=== PATIENT | male | born 1995 | race African-American/Black ===

== ENCOUNTER 2018-06-02 09:54 | Emergency (ER) | payer OTHER ==
--- NOTE | 2018-06-02 10:37 | RAD ---
LEFT WRIST 3 VIEWS: Date: 06/02/18 HISTORY: Left wrist pain. FINDINGS: Scaphoid waist and ulnar styloid are intact. No acute fracture, dislocation, or aggressive osseous er osions. IMPRESSION: No acute osseous abnormalities are demonstrated. POS: [facility]
[2018-06-02] MEDS ORDERED: Ibuprofen 800 MG TAB ONE (10:42)
== END 2018-06-02 10:43 | disposition home or self-care (01) ==
LOC: ERS 09:54
DX: M67.442 Ganglion, left hand (principal)

== ENCOUNTER 2020-09-04 19:05 | Emergency (ER) | payer OTHER, SELFPAY ==
[2020-09-05 12:34] LABS: SARS-CoV-2 MS2 Positive; SARS-CoV-2 N Gene Negative; SARS-CoV-2 S Gene Negative; SARS-CoV-2 by NAA Not Detected (NotDetected); SARS-CoV-2 orf1ab Negative
== END 2020-09-04 19:36 | disposition home or self-care (01) ==
LOC: ERS 19:05
DX: J02.9 Acute pharyngitis, unspecified (principal); Z20.828 Contact with and (suspected) exposure to other viral communicable diseases
CPT/HCPCS: 87635; 99283; U0003

== ENCOUNTER 2021-02-07 21:03 | Emergency (ER) | payer OTHER, SELFPAY ==
[2021-02-07 21:35] LABS: Bacteria/HPF None Seen HPF (None Seen); Bilirubin Negative (Negative); Blood, Urine Trace (Negative); Clarity Turbid (Clear); Glucose, Urine (Dipstick) Normal (Negative); Ketone, Urine Negative (Negative); Leukocyte 500 Leu/uL (Negative); Nitrite Negative (Negative); Protein, Urine (Dipstick) 10 mg/dL (Neg-Trace); Specific Gravity, Urine 1.027 (1.002-1.036); Squamous Epithelial 0-3 HPF (0-3); Urobilinogen 3 mg/dL (Less than 2); WBC/HPF Greater than 50 HPF (0-3); pH, Urine 6.5 (5.0-9.0)
[2021-02-07] MEDS ORDERED: Lidocaine 1% PF 5 ML VIAL ONE (21:35)
[2021-02-07] MEDS ORDERED: cefTRIAXone\\ROCEPHIN 500 MG VIAL ONE (21:35)
[2021-02-10 21:39] LABS: Chlam.trachomatis by PCR,Urine Inconclusive (NotDetected)
== END 2021-02-07 21:39 | disposition home or self-care (01) ==
LOC: ERS 21:03
DX: Z20.2 Contact with and (suspected) exposure to infections with a predominantly sexual mode of transmission (principal)
CPT/HCPCS: 81003; 81015; 87086; 87491; 87591; 96372; 99283; J0696